=== PATIENT | female | born 1995 | race Caucasian/White ===

== ENCOUNTER 2018-06-22 10:22 | Emergency (ER) | payer MEDICAID, OTHER ==
[~2018-06-22] VITALS: Ht 157.5 cm; Wt 59.1 kg
[~2018-06-22 10:22] MED LIST: IBUP-1222 PO; OXYC-302 PO
[2018-06-22 10:29] VITALS: BP 120/71
== END 2018-06-22 10:48 ==
LOC: ED 10:42
DX: R79.89 Other specified abnormal findings of blood chemistry (principal); Z53.21 Procedure and treatment not carried out due to patient leaving prior to being seen by health care provider